=== PATIENT | female | born 1950 | race Caucasian/White ===

== ENCOUNTER 2016-12-21 16:16 | Inpatient (IN) | payer OTHER, BC ==
[~2016-12-21] VITALS: Ht 157.5 cm; Wt 71.8 kg
[2016-12-21 17:21] LABS: PLATELET COUNT 166 x10^3mcL (130-400)
[2016-12-21 17:28] LABS: CALCIUM 8.5 mg/dL (8.5-10.1); CARBON DIOXIDE 21.8 mmol/L (21-32); CHLORIDE SERUM 103 mmol/L (98-107); CREATININE SERUM 0.7 mg/dL (0.6-1.0); GFR1 > 60 mL/min; GLUCOSE SERUM 115 mg/dL (74-106); POTASSIUM SERUM 3.8 mmol/L (3.5-5.1); SODIUM SERUM 135 mmol/L (136-145)
[2016-12-21 17:40] LABS: CK-MB < 0.5 ng/mL (0-3.6); CREATINE KINASE 36 U/L (26-192); FREE T4 1.2 ng/dL (0.76-1.46); FREE THYROXINE INDEX 2.9 ug/dL (1.4-4.5); T4(THYROXINE) 10.2 ug/dL (4.7-13.3)
[2016-12-21 17:42] LABS: UA SPECIFIC GRAVITY <=1.005 (1.005-1.035); microscopic required? YES; urine erythrocyte TRACE (NEGATIVE)
[2016-12-21 17:47] LABS: RED CELL DISTRIBUTION WIDTH 16.3 % (11.5-14.5)
[2016-12-21 17:49] LABS: ALKALINE PHOSPHATASE 347 U/L (46-116); ALT/SGPT 88 U/L (14-59); AST/SGOT 77 U/L (15-37); BILIRUBIN TOTAL 1.58 mg/dL (0.20-1.00); C REACTIVE PROTEIN 9.2 mg/dL (<=0.9)
[2016-12-21 17:51] LABS: ALBUMIN 3.1 g/dL (3.4-5.0); T3 TOTAL 0.96 ng/mL; TOTAL PROTEIN, SERUM 9.2 g/dL (6.4-8.2)
[2016-12-21 19:06] LABS: CHOLESTEROL/HDL RATIO 3.7; MAGNESIUM 1.9 mg/dL (1.8-2.4); PHOSPHOROUS 2.7 mg/dL (2.5-4.9)
[2016-12-21 19:46] VITALS: BP 132/78
[2016-12-21 20:04] LABS: BAND NEUTROPHIL 2 % (0-10); MONOCYTE 45 % (0-7); SEGMENTED NEUTROPHILS 3 % (37-75)
[2016-12-21 20:05] LABS: PLATELET MORPHOLOGY LARGE PLATELET SEEN; rbc morphology (normal/abnorm) ABNORMAL (NORMAL)
[2016-12-22 00:51] LABS: ERYTHROCYTE SED RATE 79 mm/hr (0-30)
[2016-12-22 06:34] VITALS: BP 110/59
[2016-12-22 07:38] LABS: CALCIUM 7.9 mg/dL (8.5-10.1); CHLORIDE SERUM 113 mmol/L (98-107); CREATININE SERUM 0.6 mg/dL (0.6-1.0); GFR1 > 60 mL/min; GLUCOSE SERUM 81 mg/dL (74-106); POTASSIUM SERUM 3.3 mmol/L (3.5-5.1); SODIUM SERUM 141 mmol/L (136-145)
[2016-12-22 07:49] LABS: PLATELET COUNT 122 x10^3mcL (130-400); RED CELL DISTRIBUTION WIDTH 16.5 % (11.5-14.5)
[2016-12-22 10:11] VITALS: BP 125/62
[2016-12-22 10:43] LABS: BAND NEUTROPHIL 1 % (0-10); BASOPHIL 0 % (0-2); MONOCYTE 40 % (0-7); SEGMENTED NEUTROPHILS 2 % (37-75); rbc morphology (normal/abnorm) ABNORMAL (NORMAL)
[2016-12-22 14:22] VITALS: BP 126/71
[2016-12-22 16:45] VITALS: BP 126/67
[2016-12-22 22:01] VITALS: BP 110/30
[2016-12-23 08:55] LABS: CALCIUM 8.3 mg/dL (8.5-10.1); CARBON DIOXIDE 24.7 mmol/L (21-32); CHLORIDE SERUM 111 mmol/L (98-107); CREATININE SERUM 0.7 mg/dL (0.6-1.0); GFR1 > 60 mL/min; MAGNESIUM 1.9 mg/dL (1.8-2.4); PHOSPHOROUS 3.2 mg/dL (2.5-4.9); POTASSIUM SERUM 3.5 mmol/L (3.5-5.1); SODIUM SERUM 142 mmol/L (136-145)
[2016-12-23 10:15] VITALS: BP 147/77
[2016-12-23 11:14] LABS: GLUCOSE SERUM 80 mg/dL (74-106)
[2016-12-23 11:40] LABS: PLATELET COUNT 119 x10^3mcL (130-400); RED CELL DISTRIBUTION WIDTH 16.4 % (11.5-14.5)
[2016-12-23 13:31] LABS: BAND NEUTROPHIL 0 % (0-10); BASOPHIL 5 % (0-2); MONOCYTE 15 % (0-7); SEGMENTED NEUTROPHILS 3 % (37-75)
[2016-12-23 13:33] LABS: rbc morphology (normal/abnorm) ABNORMAL (NORMAL); target cell (codocyte) 1+
[2016-12-23 14:32] VITALS: BP 131/67
[2016-12-23 16:37] VITALS: BP 137/74
[2016-12-23 21:53] VITALS: BP 140/72
[2016-12-24 05:25] VITALS: BP 129/61
[2016-12-24 06:27] LABS: CALCIUM 8.6 mg/dL (8.5-10.1); CARBON DIOXIDE 22.2 mmol/L (21-32); CHLORIDE SERUM 108 mmol/L (98-107); CREATININE SERUM 0.7 mg/dL (0.6-1.0); GFR1 > 60 mL/min; GLUCOSE SERUM 89 mg/dL (74-106); PHOSPHOROUS 4.1 mg/dL (2.5-4.9); POTASSIUM SERUM 3.3 mmol/L (3.5-5.1); SODIUM SERUM 139 mmol/L (136-145)
[2016-12-24 06:55] LABS: PLATELET COUNT 149 x10^3mcL (130-400)
[2016-12-24 09:25] VITALS: BP 148/90
[2016-12-24] MEDS ORDERED: AUG500 PO (09:52)
[2016-12-24] MEDS ORDERED: LAC PO (09:52)
[2016-12-24 10:06] LABS: BAND NEUTROPHIL 0 % (0-10); BASOPHIL 1 % (0-2); MONOCYTE 24 % (0-7); SEGMENTED NEUTROPHILS 7 % (37-75)
[2016-12-24 10:07] LABS: rbc morphology (normal/abnorm) ABNORMAL (NORMAL)
[2016-12-24 10:53] VITALS: BP 148/90
== END 2016-12-24 14:00 | disposition home or self-care (01) | DRG 872 ==
LOC: ED 16:16 → DU 18:16
PROVIDERS: Specialist; ADMIT Family Medicine
DX: A41.9 Sepsis, unspecified organism (principal); L03.211 Cellulitis of face; L03.113 Cellulitis of right upper limb; E87.1 Hypo-osmolality and hyponatremia; E44.1 Mild protein-calorie malnutrition; E80.6 Other disorders of bilirubin metabolism; D64.9 Anemia, unspecified; R74.0 Nonspecific elevation of levels of transaminase and lactic acid dehydrogenase [LDH]; E78.5 Hyperlipidemia, unspecified; D72.819 Decreased white blood cell count, unspecified; E66.3 Overweight; Z68.28 Body mass index [BMI] 28.0-28.9, adult
CPT/HCPCS: 36600; 83880; 84439; J2248; J2543; J3370; J3490; J7030; J7040; Q0092